=== PATIENT | male | born 1975 | race Hispanic/Latino ===

== ENCOUNTER → 2018-08-03 | Day surgery (SDC) | payer OTHER ==
[~2018-08-03] MED LIST: ACETAMINOPHEN 1000 MG/100 ML 100 ML IV ONE; DEXAMETHASONE SOD PHOS INJ 4 MG/ML VIAL ONE; FENTANYL CITRATE/PF 100MCG/2 ML INJ ONE; LIDOCAINE HCL (LTA) 4 ML SOLN ONE; LIDOCAINE HCL 2% LOCAL INJ 5 ML SDV VIAL INJ ONE; MIDAZOLAM HCL 2 MG/2 ML VIAL ONE; MORPHINE SULFATE INJ 10 MG/ML ONE; OMEPRAZOLE40 MG; ONDANSETRON HCL INJ 2 MG/ML VIAL ONE; OXYMETAZOLINE HCL 0.05% NAS 1 SPRAY BTL ONE; PROPOFOL IV EMULSION 10 MG/ML 20 ML VIAL ONE; ROCURONIUM BROMIDE 10 MG/ML 5ML VIAL ONE; SEVOFLURANE INHAL SOLN 250 ML PEN BTL ONE; SUCCINYLCHOLINE 200 MG/10 ML SYR ONE
--- OUTSIDE RECORDS SUMMARY | 2018-08-03 07:26 | XMS REPORT | Continuity of Care Document ---
Author Author [facility] Interface Address Unknown Phone Unavailable Problems Problem Status Onset Date Classification Date Reported Comments Source INSOMNIA Active 04/01/2015 Condition 04/01/2015 [facility] ATYPICAL CHEST PAIN Active 04/01/2015 Condition 04/01/2015 [facility] MUSCLE SPASM Active 04/01/2015 Condition 04/01/2015 [facility] HELICOBACTER PYLORI GASTRITIS, HX OF Inactive 04/10/2014 Condition 04/01/2015 [facility] RECTAL BLEEDING Inactive 04/09/2014 Condition 04/01/2015 [facility] GASTRITIS Inactive 04/09/2014 Condition 04/01/2015 [facility] Medications Medication Details Route Status Patient Instructions Ordering Provider Order Date Source ZOLPIDEM TARTRATE 5 MG TABS Take one tablet by mouth at bedtime as needed for insomnia. Active 04/01/2015 [facility] OMEPRAZOLE 20 MG CPDR Take one capsule by mouth twice daily Active 04/10/2014 [facility] CLARITHROMYCIN 500 MG TABS take 1 tablet by mouth twice daily x 2 weeks Active 04/10/2014 [facility] AMOXICILLIN 500 MG TABS take 2 tab by mouth twice daily No Longer Active 04/10/2014 [facility] OMEPRAZOLE 20 MG CPDR Take one capsule by mouth twice daily Active 04/10/2014 [facility] CLARITHROMYCIN 500 MG TABS take 1 tablet by mouth twice daily x 2 weeks Active 04/10/2014 [facility] CLARITHROMYCIN 500 MG TABS take 1 tablet by mouth twice daily x 2 weeks No Longer Active 04/10/2014 [facility] OMEPRAZOLE 20 MG CPDR Take one capsule by mouth twice daily No Longer Active 04/10/2014 [facility] Allergies, Adverse Reactions, Alerts Substance Category Reaction Severity Reaction type Status Date Reported Comments Source Immunizations Immunization Date Given Site Status Last Updated Comments Source Results Order Name Results Value Reference Range Date Interpretation Comments Source Chemistry HEMOCCULT Negative 04/16/2014 [facility] Microbiology HEMOCCULT Negative 04/16/2014 [facility] Chemistry HEMOCCULT Negative 04/16/2014 [facility] Microbiology HEMOCCULT Negative 04/16/2014 [facility] Chemistry HEMOCCULT Negative 04/16/2014 [facility] Microbiology HEMOCCULT Negative 04/16/2014 [facility] Hematology HCT 42.6 % 42.0 - 54.0 04/09/2014 [facility] Vital Signs Vital Sign Value Date Comments Source Height 69 04/01/2015 [facility] Weight 218 04/01/2015 [facility] Temperature Oral (F) 97.2 F 04/01/2015 [facility] Systolic (mm Hg) 125 04/01/2015 [facility] Diastolic (mm Hg) 81 04/01/2015 [facility] Heart Rate 70 04/01/2015 [facility] Respitory Rate 14 04/01/2015 [facility] Height 69 04/09/2014 [facility] Weight 209 04/09/2014 [facility] Systolic (mm Hg) 129 04/09/2014 [facility] Diastolic (mm Hg) 87 04/09/2014 [facility] Heart Rate 67 04/09/2014 [facility] Temperature Oral (F) 97.3 F 04/09/2014 [facility] Respitory Rate 12 04/09/2014 [facility] Encounters Location Location Details Encounter Type Encounter Number Reason For Visit Attending Provider ADM Date DC Date Status Source [facility] Lab Report [id number] Rosetta Ross MD 04/09/2014 04/09/2014 Medical [facility] Office Visit [id number] Rosetta Ross MD 04/09/2014 04/09/2014 Medical [facility] Lab Report [id number] Rosetta Ross MD 04/16/2014 04/16/2014 Medical [facility] Lab Report [id number] Rosetta Ross MD 06/18/2014 06/18/2014 Medical [facility] Office Visit [id number] Rosetta Ross MD 04/01/2015 04/01/2015 Medical [facility] Procedures Procedure Code Date Perfomer Comments Source
--- OUTSIDE RECORDS SUMMARY | 2018-08-03 07:26 | XMS REPORT | Continuity of Care Document ---
Author Author [facility] Organization [facility] Address Unknown Phone Unavailable Care Team Providers Care Vision Care Associate Name Role Phone MD Vandana, Rosetta PP Unavailable Insurance Providers Payer name Policy type / Coverage type Policy ID Covered alliance party ID Policy [employer] SLIDING FEE SCHEDULE - DISCOUNT *SELF PAY* Encounters Encounter Performer Location Date Office Visit Rosetta Ross MD [facility] Apr 09, 2014 Problems Problem Effective Dates Problem Status RECTAL BLEEDING Apr 09, 2014 Active GASTRITIS Apr 09, 2014 Active Vital Signs Date Description Test Result Apr 09, 2014 height E&M HEIGHT 69 in Apr 09, 2014 weight E&M WEIGHT 209 lb Apr 09, 2014 blood pressure, systolic BP SYSTOLIC 129 mm Hg Apr 09, 2014 blood pressure, diastolic BP DIASTOLIC 87 mm Hg Apr 09, 2014 pulse rate E&M PULSE RATE 67 /min Apr 09, 2014 temperature E&M TEMPERATURE 97.3 deg f Apr 09, 2014 respiratory rate E&M RESP RATE 12 /min Results Date Description Test Name Value Reference Interpretation Status Apr 09, 2014 hematocrit, blood HCT 42.6 % 42.0-54.0
--- OUTSIDE RECORDS SUMMARY | 2018-08-03 07:27 | XMS REPORT | Continuity of Care Document ---
Author Author [facility] Organization [facility] Address Unknown Phone Unavailable Care Team Providers Care Roll Picker Name Role Phone MD Vandana, Rosetta PP Unavailable Insurance Providers Payer name Policy type / Coverage type Policy ID Covered democrat ID Policy [employer] SLIDING FEE SCHEDULE - DISCOUNT *SELF PAY* Encounters Encounter Performer Location Date Lab Report Rosetta Ross MD [facility] Apr 09, 2014 Problems Problem Effective Dates Problem Status RECTAL BLEEDING Apr 09, 2014 Active GASTRITIS Apr 09, 2014 Active HELICOBACTER PYLORI GASTRITIS, HX OF Apr 10, 2014 Active Medications Medication Instructions Start Date Status OMEPRAZOLE 20 MG CPDR Take one capsule by mouth twice daily Apr 10, 2014 Active CLARITHROMYCIN 500 MG TABS take 1 tablet by mouth twice daily x 2 weeks Apr 10, 2014 Active AMOXICILLIN 500 MG TABS take 2 tab by mouth twice daily Apr 10, 2014 Active Vital Signs Date Description Test [...]
--- OUTSIDE RECORDS SUMMARY | 2018-08-03 07:27 | XMS REPORT | Continuity of Care Document ---
Author Author [facility] Organization [facility] Address Unknown Phone Unavailable Care Team Providers Care Waterproof Material Folder Name Role Phone MD Vandana, Rosetta RIVERS Unavailable Insurance Providers Payer name Policy type / Coverage type Policy ID Covered constitution party ID Policy [employer] SLIDING FEE SCHEDULE - DISCOUNT *SELF PAY* Encounters Encounter Performer Location Date Office Visit Rosetta Ross MD [facility] Apr 01, 2015 Problems Problem Effective Dates Problem Status RECTAL BLEEDING Apr 09, 2014 Inactive GASTRITIS Apr 09, 2014 Inactive HELICOBACTER PYLORI GASTRITIS, HX OF Apr 10, 2014 Inactive INSOMNIA Apr 01, 2015 Active ATYPICAL CHEST PAIN Apr 01, 2015 Active MUSCLE SPASM Apr 01, 2015 Active Procedures Date Description Comments Apr 01, 2015 smoking status Never smoker Medications Medication Instructions Start Date Status AMOXICILLIN 500 MG TABS take 2 tab by mouth twice daily Apr 10, 2014 Inactive CLARITHROMYCIN 500 MG TABS take 1 tablet by mouth twice daily x 2 weeks Apr 10, 2014 Inactive OMEPRAZOLE 20 MG CPDR Take one capsule by mouth twice daily Apr 10, 2014 Inactive ZOLPIDEM TARTRATE 5 MG TABS Take one tablet by mouth at bedtime as needed for insomnia. Apr 01, 2015 Active Vital Signs Date Description Test Result Apr 09, 2014 height E&M - 8302-2 HEIGHT 69 in Apr 09, 2014 weight E&M - 3141-9 WEIGHT 209 lb Apr 09, 2014 blood pressure, systolic - 8480-6 BP SYSTOLIC 129 mm Hg Apr 09, 2014 blood pressure, diastolic - 8462-4 BP DIASTOLIC 87 mm Hg Apr 09, 2014 pulse rate E&M - 8867-4 PULSE RATE 67 /min Apr 09, 2014 temperature E&M TEMPERATURE 97.3 deg f Apr 09, 2014 respiratory rate E&M - 9279-1 RESP RATE 12 /min Apr 01, 2015 height E&M - 8302-2 HEIGHT 69 in Apr 01, 2015 weight E&M - 3141-9 WEIGHT 218 lb Apr 01, 2015 temperature E&M TEMPERATURE 97.2 deg f Apr 01, 2015 blood pressure, systolic - 8480-6 BP SYSTOLIC 125 mm Hg Apr 01, 2015 blood pressure, diastolic - 8462-4 BP DIASTOLIC 81 mm Hg Apr 01, 2015 pulse rate E&M - 8867-4 PULSE RATE 70 /min Apr 01, 2015 respiratory rate E&M - 9279-1 RESP RATE 14 /min Results Date Description Test Name Value Reference Interpretation Status Apr 09, 2014 hematocrit, blood HCT 42.6 % 42.0-54.0 Apr 16, 2014 occult blood, stool (E&M) HEMOCCULT Negative null Negative Apr 16, 2014 occult blood, stool (E&M) HEMOCCULT Negative null Negative Apr 16, 2014 occult blood, stool (E&M) HEMOCCULT Negative null Negative
--- OUTSIDE RECORDS SUMMARY | 2018-08-03 07:27 | XMS REPORT | Continuity of Care Document ---
Author Author [facility] Organization [facility] Address Unknown Phone Unavailable Care Team Providers Care Shipwright Helper Name Role Phone MD Vandana, Rosetta PP Unavailable Insurance Providers Payer name Policy type / Coverage type Policy ID Covered constitution party ID Policy [employer] SLIDING FEE SCHEDULE - DISCOUNT *SELF PAY* Encounters Encounter Performer Location Date Lab Report Rosetta Ross MD [facility] Apr 16, 2014 Problems Problem Effective Dates Problem Status [...]
--- OUTSIDE RECORDS SUMMARY | 2018-08-03 07:27 | XMS REPORT | Continuity of Care Document ---
Author Author [facility] Organization [facility] Address Unknown Phone Unavailable Care Team Providers Care Research Intern Name Role Phone MD Vandana, Rosetta PP Unavailable Insurance Providers Payer name Policy type / Coverage type Policy ID Covered green party ID Policy [employer] SLIDING FEE SCHEDULE - DISCOUNT *SELF PAY* Encounters Encounter Performer Location Date Lab Report Rosetta Ross MD [facility] Jun 18, 2014 Problems Problem Effective Dates Problem Status [...] E&M - 9279-1 RESP RATE 12 /min Results Date Description Test Name Value Reference Interpretation Status Apr 09, 2014 hematocrit, blood HCT 42.6 % 42.0-54.0 Apr 16, 2014 occult blood, stool (E&M) HEMOCCULT Negative null Negative Apr 16, 2014 occult blood, stool (E&M) HEMOCCULT Negative null Negative Apr 16, 2014 occult blood, stool (E&M) HEMOCCULT Negative null Negative
[2018-08-03 11:35] VITALS: BP 140/95
--- NOTE | 2018-08-03 13:23 | Operative Report ---
DATE OF PROCEDURE: August 03, 2018 PREOPERATIVE DIAGNOSES 1. Hoarseness. 2. Right posterior true vocal cord mass. POSTOPERATIVE DIAGNOSES 1. Hoarseness. 2. Right posterior true vocal cord papillomas. PROCEDURES 1. Direct laryngoscopy. 2. Suspension operative microlaryngoscopy with operating microscope. 3. Excision of right posterior true vocal cord papillomas. SIGNIFICANT FINDINGS: Significant papillomas involving the right posterior true vocal cord at the junction with the arytenoid. EMPLOYEE BENEFITS ATTORNEY: None. ANESTHESIA: General endotracheal tube anesthesia with 7.5 ET tube. SPECIMENS REMOVED: Right posterior true vocal cord papillomas. ESTIMATED BLOOD LOSS: 30 mL. COMPLICATIONS: None. INDICATIONS: Patient is a 42-year-old male with a 4 month history of a sore throat, cough, hoarseness, postnasal drip, globus sensation, and throat clearing. He denies dysphagia, neck mass, shortness of breath, hemoptysis or fever. He is a nonsmoker. He has had no previous throat or neck surgery. He has been refractory to antibiotics and steroid. Flexible fiberoptic nasal laryngoscopy revealed a right posterior true vocal cord mass. He is scheduled for direct laryngoscopy, suspension operative micro laryngoscopy with operating microscope and excision of right true vocal cord mass under general anesthesia. Risks and complications of the procedures were thoroughly discussed with the patient and his and they include infection, bleeding, scarring, failure to improve, need for additional operations, damage to teeth, gums, tongue, and lips, permanent worsening of voice, airway obstruction, the possibility of malignancy and need for further treatment and surgery, chronic throat pain, need for blood transfusions, the development of pulmonary infections, damage to surrounding nerves, blood vessels and muscles. They fully understand and give consent. PROCEDURE: Patient was taken to the operating room and placed supine on the operating table where general anesthesia was achieved through orotracheal intubation. Eyes were taped. Shoulder roll was placed and head and body were draped. Table was turned 90 degrees with the head toward surgeon. The plastic tooth guard was then placed over the upper teeth. A Paty laryngoscope was then used to visualize the larynx. This was done without difficulty and placed in suspension on a Hoang stand. Significant amount of papillomas were seen on the posterior aspect of the right true vocal cord at the junction with the arytenoids process. The papillomas were then removed with cup forceps. The remaining posterior papillomas were removed after removing the endotracheal tube. The specimens were sent for pathology. Following the removal, the endotracheal tube was then replaced. Hemostasis was obtained with cottonoid pledgets soaked with Afrin. Following this, visualization of the hypopharynx, larynx and oropharynx revealed normal findings. Patient was awakened in the operating room, extubated and taken to the recovery room in good condition Job#: [id number] MTDD
== END | disposition home or self-care (01) ==
LOC: OR 07:24
PROVIDERS: ATTEND Otolaryngology
DX: D14.1 Benign neoplasm of larynx (principal); R49.0 Dysphonia; Z01.810 Encounter for preprocedural cardiovascular examination; Z87.11 Personal history of peptic ulcer disease
CPT/HCPCS: 31541; 88305; 88342; 93005; J0131; J1100; J2001; J2250; J2270; J2405; J2704

== ENCOUNTER → 2020-10-04 | Day surgery (SDC) | payer OTHER ==
[~2020-10-04] MED LIST changes: -ACETAMINOPHEN 1000 MG/100 ML 100 ML IV ONE; -FENTANYL CITRATE/PF 100MCG/2 ML INJ ONE; +GLYCOPYRROLATE INJ 0.2 MG/ML VIAL ONE; -LIDOCAINE HCL (LTA) 4 ML SOLN ONE; -MIDAZOLAM HCL 2 MG/2 ML VIAL ONE; -MORPHINE SULFATE INJ 10 MG/ML ONE; +NEOSTIGMINE 1 MG/ML 10ML VIAL ONE; -ONDANSETRON HCL INJ 2 MG/ML VIAL ONE; +ONDANSETRON HCL INJ 2MG/ML 2ML 2 MG/ML VIAL ONE; +ROCURONIUM BROMIDE 10 MG/ML 5ML VIAL IV ONE; -ROCURONIUM BROMIDE 10 MG/ML 5ML VIAL ONE; -SUCCINYLCHOLINE 200 MG/10 ML SYR ONE; +SUCCINYLCHOLINE CHLORIDE 20 MG/ML 10ML VIAL ONE
[2020-10-04 09:08] VITALS: BP 107/56
== END | disposition home or self-care (01) ==
LOC: OR 05:25
PROVIDERS: ATTEND Otolaryngology
DX: D14.1 Benign neoplasm of larynx (principal); R49.0 Dysphonia; K21.9 Gastro-esophageal reflux disease without esophagitis; K28.9 Gastrojejunal ulcer, unspecified as acute or chronic, without hemorrhage or perforation; N20.0 Calculus of kidney; R00.1 Bradycardia, unspecified; Z01.810 Encounter for preprocedural cardiovascular examination; Z01.812 Encounter for preprocedural laboratory examination; Z20.822 Contact with and (suspected) exposure to COVID-19
CPT/HCPCS: 31541; 88305; 93005; J0330; J1100; J2001; J2405; J2704; J2710; U0002